=== PATIENT | male | born 1970 | race Caucasian/White ===

== ENCOUNTER 2018-10-18 13:06 | Inpatient (IN) | payer OTHER ==
[~2018-10-18] VITALS: Ht 170.2 cm; Wt 91.3 kg
[2018-10-18] VITALS (13 sets, daily range): BP systolic 82–119; BP diastolic 42–94
[2018-10-18 13:25] LABS: ABSOLUTE EOSINOPHILS 0.1 thou/uL (0.0-0.7); ABSOLUTE LYMPHOCYTES 3.4 thou/uL (0.8-5.3); ABSOLUTE MONOCYTES 0.7 thou/uL (0.0-1.2); BASOPHILS 0.3 %; EOSINOPHILS 0.9 %; HEMATOCRIT 44.4 % (42.0-52.0); LYMPHOCYTES 23.5 %; MCH 31.2 pg (26.0-34.0); MCHC 33.9 g/dL (28.0-37.0); MCV 92.3 fL (80.0-100.0); MPV 9.5 fl. (7.2-11.1); NUCLEATED RBCS 0 /100WBC; PLATELET COUNT* 198 thou/uL (150-400); POLYS 70.3 %; RBC 4.81 mil/uL (4.50-6.00); RDW-CV 13.3 % (10.5-14.5); WBC 14.3 thou/uL (4.0-11.0)
[2018-10-18 13:45] LABS: ANION GAP 8 mmol/L (7-16); APTT 24.2 Seconds (25.0-31.3); BUN 16 mg/dL (7-18); CALCIUM 8.6 mg/dL (8.5-10.1); CHLORIDE 102 mmol/L (98-107); CO2 27 mmol/L (21-32); CREATININE 1.2 mg/dL (0.6-1.3); GLUCOSE 231 mg/dL (70-99); INR 1.1; PROTIME 11.3 Seconds (9.20-11.50); SODIUM 137 mmol/L (136-145); TROPONIN-I LEVEL <0.06 ng/mL (<0.06)
[2018-10-18 13:49] LABS: ALBUMIN 3.5 g/dL (3.4-5.0); ALKALINE PHOSPHATASE 91 U/L (46-116); CK-MB MASS 1.4 ng/mL (<0.5-3.6); LIPASE 118 U/L (73-393); MAGNESIUM 1.9 mg/dL (1.8-2.4); NT-PRO BRAIN NAT PEPTIDE 10 pg/mL (<300); SGOT 18 U/L (15-37); SGPT 25 U/L (30-65); TOTAL BILIRUBIN 0.4 mg/dL (<0.1-1.0); TOTAL PROTEIN 7.1 g/dL (6.4-8.2)
--- NOTE | 2018-10-18 15:40 | CARD ---
[address] [address] CARDIAC CATH REPORT Name: JASMIN GARCIA Room: [facility] IN M.R.#: [id number] Admission: 10/18/18 Attend Phys: Earle Sánchez MD, Discharge: Date of : 68 Report #: [id number] THIS REPORT FOR: //name// APPROVED REPORT Study performed: 10/18/2018 13:23:07 Patient Details Patient Status: In-Patient Room #: The patient is a 48 year-old male Event Personnel Dr Reyes, Dr Sánchez Procedures Performed Left heart catheterization left ventriculography selective coronary artery and acute percutaneous coronary intervention to the right coronary artery in the context of an acute ST segment elevation inferior wall myocardial infarction Indication STEMI Risk Factors Hypercholesterolemia Admission/Lab Medications/Medications given during procedure Aspirin, Platelet Aff. Inhib., Angiomax bolus and infusion Procedure Narrative The patient was brought emergently to the Cardiac Catheterization Laboratory and was prepped and draped in a sterile manner. The right femoral was infiltrated with 2% Lidocaine subcutaneous anesthesia. A 6 Peruvian sheath was inserted into the right femoral artery. Coronary angiography was performed using coronary diagnostic catheters. The right coronary system was accessed and visualized with a Diagnostic catheter. The left coronary system was accessed and visualized with a Diagnostic catheter. The left ventricle was accessed and visualized with a Diagnostic catheter. Left ventricular/Aortic Valve gradient assessed via catheter pullback. Left ventriculogram was performed in [place] LE[place]N projection. Pre-demployment femoral angiogram was performed . Closure device was deployed with a 6 Fr Angioseal. There was no hematoma. Diagnostic Cath [address] [address] CARDIAC CATH REPORT Name: JASMIN GARCIA Room: [address] IN .R.#: [id number] Admission: 10/18/18 Attend Phys: Earle Sánchez MD, Discharge: Date of : 68 Report #: [id number] Left Main 0% narrowing LAD 100% chronic total occlusion of the proximal LAD with left to left collaterals filling the distal LAD system Circumflex 50% narrowing of the proximal portion of the third marginal branch Right Coronary 100% proximal occlusion with prominent intraluminal thrombus. There was 75% mid right coronary artery narrowing at the acute margin defined after recanalization of the proximal right coronary artery Left Ventriculography The left ventricle is normal in size with contractility. The left ventricular ejection fraction is estimated to be 65%. Left ventricular wall motion abnormalities are present. There is no mitral insufficiency. Mild inferobasilar hypokinesis is noted Hemodynamics The aortic pressure is 110/70 mmHg with a mean of mmHg. The left ventricular end diastolic pressure is 20 mmHg. There was no gradient across the aortic valve upon pullback. PCI Technique Lesion Anticoagulation was achieved with Angiomax. Percutaneous coronary intervention was performed on the proximal right coronary artery. The lesion stenosis prior to intervention was 100% with JACE 0 flow. A JR4 6 Peruvian Guide Catheter was used to engage the right ostium. A 014 BMW Interventional Guidewire was used to cross the lesion. BALLOON DILATION A Balloon catheter 2.5 x 12 mm trek was inserted and inflated up to 15atm for 15seconds. STENT DEPLOYMENT A drug-eluting stent 3.25 x 22 mm xience jack was inserted and inflated up to 17atm for 10seconds. POST STENT DEPLOYMENT BALLOON DILATION A Balloon catheter 3.5 x 15 mm NC trek was inserted and inflated up to 18-20atm for 15seconds. Final angiography reveals 10 % stenosis with JACE 3 flow. PCI Technique Lesion 2 Percutaneous Coronary Intervention was [place] [address] CARDIAC CATH REPORT Name: JASMIN GARCIA Room: [address]#: [id number] Admission: 10/18/18 Attend Phys: Earle Sánchez MD, Discharge: Date of : 68 Report #: [id number] coronary artery. The lesion stenosis prior to intervention was 75% with JACE 0 flow. Balloon Dilation A Balloon catheter 2.5 x 12 mm trek was inserted and inflated up to 14atm for 15seconds. Stent Deployment A drug-eluting stent 2.0 x 15 mm xience jack was inserted and inflated up to 18atm for 15seconds. Final angiography reveals 0 % stenosis with JACE 3 flow. Conclusion #[address] segment elevation inferior wall myocardial infarction #2 Coronary artery disease characterized by the following: A 100% proximal right coronary occlusion with prominent intraluminal thrombus with 75% mid right coronary narrowing at the acute margin B 100% chronic total occlusion of the proximal LAD with left to left collaterals filling the distal LAD C prominent though nondominant circumflex with 50% proximal portion of the third marginal branch #2 normal global left ventricular systolic function, estimate ejection fraction being 65% with mild inferobasilar hypokinesis 3 moderate elevation of left ventricular end-diastolic pressure at rest #4 successful percutaneous coronary intervention with deployment of a drug-eluting stent at the site of 100% proximal right coronary occlusion and a second drug-eluting stent at site of 75% mid right coronary occlusion with 10 and 0% residual narrowings and JACE-3 flow to the distal vessel and no residual thrombus Recommendations Cardiac Risk Reduction Program Aggressive Medical Therapy Medications Administered Aspirin (any) [place] [address] CARDIAC CATH REPORT Name: RADHAJASMIN Didi Room: [address]#: [id number] Admission: 10/18/18 Attend Phys: Earle Sánchez MD, Discharge: Date of : 68 Report #: [id number] Ticagrelor Diagnostic Cath Approved by: Gabriel Reyes MD Date/Time: 10/18/2018 15:37:27 <ELECTRONICALLY SIGNED> By: Earle Sánchez MD, [facility] 10/18/18 1539 1539 1539Johimanshu Sánchez MD, [facility] /INF
[2018-10-18 20:06] LABS: HEMATOCRIT 41.6 % (42.0-52.0); HEMOGLOBIN 14.3 gm/dL (14.0-18.0); MCH 31.2 pg (26.0-34.0); MCHC 34.3 g/dL (28.0-37.0); MPV 9.6 fl. (7.2-11.1); RBC 4.58 mil/uL (4.50-6.00); RDW-CV 13.6 % (10.5-14.5); WBC 14.6 thou/uL (4.0-11.0)
[2018-10-18 20:17] LABS: INR 1.3; PROTIME 13.4 Seconds (9.20-11.50)
[2018-10-18 20:33] LABS: APTT 46.2 Seconds (25.0-31.3)
[2018-10-19] VITALS (15 sets, daily range): BP systolic 92–151; BP diastolic 59–80
[2018-10-19 04:18] LABS: HEMATOCRIT 37.6 % (42.0-52.0); HEMOGLOBIN 12.8 gm/dL (14.0-18.0); MCH 31.4 pg (26.0-34.0); MCV 92.3 fL (80.0-100.0); MPV 9.3 fl. (7.2-11.1); RBC 4.07 mil/uL (4.50-6.00); RDW-CV 13.5 % (10.5-14.5); WBC 13.7 thou/uL (4.0-11.0)
[2018-10-19 04:33] LABS: CHOLESTEROL 163 mg/dL (<200); HDL CHOLESTEROL 31 mg/dL (>40); LDL CHOLESTEROL 113 mg/dL (<100); TC:HDL 5.3 Ratio (Not establshd); TRIGLYCERIDE 99 mg/dL (<150); VLDL 20 mg/dL (<40)
[2018-10-19 05:47] LABS: SERUM ASSESSMENT CLEAR
[2018-10-19 06:45] LABS: ALBUMIN 2.9 g/dL (3.4-5.0); CALCIUM 7.8 mg/dL (8.5-10.1); CREATININE 0.9 mg/dL (0.6-1.3); POTASSIUM 4.3 mmol/L (3.5-5.1); TOTAL BILIRUBIN 0.5 mg/dL (<0.1-1.0); TOTAL PROTEIN 5.5 g/dL (6.4-8.2)
[2018-10-19 06:46] LABS: TROPONIN-I LEVEL 110.37 ng/mL (<0.06)
--- NOTE | 2018-10-19 09:34 | EKG ---
[place] [address] ELECTROCARDIOGRAM REPORT Name: JASMIN GARCIA Room: [address] ADM IN M.R.#: [id number] Admission: 10/18/18 Attend Phys: Earle Sánchez MD, Discharge: Date of : 68 Report #: [id number] THIS REPORT FOR: //name// [facility] ED Test Date: 2018-10-18 Test Time: 13:06:23 Pat Name: JASMIN GARCIA Department: Room: [facility] Gender: M Post Graduate Intern: Destinee PEACE : 1970 Requested By: Nick Wilkes Order Number: [id number] MD: Manuel Delaney Measurements Intervals [place] Rate: 53 P: 0 [place]: 171 QRS: 75 QRSD: 108 T: 94 QT: 419 QTc: 394 Interpretive Statements Sinus rhythm Atrial premature complex Inferoposterior infarct, acute (RCA) Probable RV involvement, suggest recording right precordial leads No previous ECG available for comparison Electronically Signed On 10-19-2018 9:33:58 TRANSPORTATION ENGINEERING TECHNICIAN by Manuel Delaney [email or web address] <ELECTRONICALLY SIGNED> By: Manuel Delaney MD, FAC 10/19/18 0933 1306 1306 Manuel Delaney MD, [facility] /EPI
--- NOTE | 2018-10-19 15:59 | EKG ---
[place] [address] ELECTROCARDIOGRAM REPORT Name: JASMIN GARCIA Room: [address] ADM IN M.R.#: [id number] Admission: 10/18/18 Attend Phys: Earle Sánchez MD, Discharge: Date of : 68 Report #: [id number] THIS REPORT FOR: //name// [facility] Test Date: 2018-10-18 Test Time: 19:26:23 Pat Name: JASMIN GARCIA Department: Room: [facility] Gender: Paper Bundler: Pernell Cates : 1970 Requested By: Earle Sánchez Order Number: [id number] MD: Manuel Delaney Measurements Intervals [place] Rate: 65 P: ND: QRS: -13 QRSD: 91 T: 7 QT: 369 QTc: 384 Interpretive Statements Junctional rhythm Inferior infarct, old Compared to ECG 10/18/2018 13:06:23 Junctional rhythm now present Myocardial injury no longer noted Electronically Signed On 10-19-2018 15:59:29 VISUAL STYLIST by Manuel Delaney [email or web address] <ELECTRONICALLY SIGNED> By: Manuel Delaney MD, [facility] 10/19/18 2349 1926 25 Manuel Delaney MD, [facility] /EPI
--- NOTE | 2018-10-19 16:06 | EKG ---
[place] [address] ELECTROCARDIOGRAM REPORT Name: JASMIN GARCIA Room: [address] ADM IN M.R.#: [id number] Admission: 10/18/18 Attend Phys: Earle Sánchez MD, Discharge: Date of : 68 Report #: [id number] THIS REPORT FOR: //name// [facility] Test Date: 2018-10-19 Test Time: 15:29:48 Pat Name: JASMIN GARCIA Department: Room: [address] Gender: M Economics Faculty Member: : 1970 Requested By: Rosio Crump Order Number: [id number] Reading MD: Manuel Delaney Measurements Intervals [place] Rate: 64 P: 43 [place]: 157 QRS: -13 QRSD: 87 T: -24 QT: 376 QTc: 388 Interpretive Statements Sinus rhythm consider Inferior infarct, age indeterminate Probable anteroseptal infarct, old Baseline wander in lead(s) II,V5,V6 Compared to ECG 10/18/2018 13:06:23 Myocardial infarct finding still present Electronically Signed On 10-19-2018 16:06:21 HOT MILL SHEARER by Manuel Delaney [email or web address] <ELECTRONICALLY SIGNED> By: Manuel Delaney MD, [facility] 10/19/18 1606 1529 1529 Manuel Delaney MD, [facility] /EPI
[2018-10-19 23:07] LABS: GLYCOHEMOGLOBIN (HGB A1C) 5.7 % (4.8-5.6)
[2018-10-20] VITALS: BP 95/52
[2018-10-20 04:00] VITALS: BP 100/55
[2018-10-20 05:51] LABS: HEMATOCRIT 39.4 % (42.0-52.0); HEMOGLOBIN 13.1 gm/dL (14.0-18.0); MCH 30.7 pg (26.0-34.0); MCHC 33.2 g/dL (28.0-37.0); MCV 92.6 fL (80.0-100.0); MPV 9.9 fl. (7.2-11.1); RBC 4.26 mil/uL (4.50-6.00); RDW-CV 13.4 % (10.5-14.5); WBC 12.9 thou/uL (4.0-11.0)
[2018-10-20 06:09] LABS: ALBUMIN 2.9 g/dL (3.4-5.0); CALCIUM 8.3 mg/dL (8.5-10.1); CREATININE 0.9 mg/dL (0.6-1.3); MAGNESIUM 2.1 mg/dL (1.8-2.4); POTASSIUM 4.2 mmol/L (3.5-5.1); TOTAL BILIRUBIN 0.7 mg/dL (<0.1-1.0); TOTAL PROTEIN 6.2 g/dL (6.4-8.2)
[2018-10-20 06:17] LABS: TROPONIN-I LEVEL 45.72 ng/mL (<0.06)
[2018-10-20 07:59] VITALS: BP 94/55
[2018-10-20] MEDS ORDERED: BRILINTA90 MG PO (10:14)
[2018-10-20] MEDS ORDERED: ASPIR 8181 MG PO (10:14)
[2018-10-20] MEDS ORDERED: LOPRESSOR25 PO (10:17)
[2018-10-20 10:18] VITALS: BP 93/62
[2018-10-20] MEDS ORDERED: ATORVASTATIN CA40 MG PO (14:17)
[2018-10-20] MEDS ORDERED: NITROGLYCERIN0.4 MG SUBLING (14:17)
[2018-10-20] MEDS ORDERED: PROTONIX40 M1 PO (14:18)
--- NOTE | 2018-10-22 13:14 | H ---
[address] [address] HISTORY AND PHYSICAL Name: JASMIN GARCIA Room: [address]R.#: [id number] Admission: 10/18/18 Attend Phys: Earle Sánchez MD, Discharge: 10/20/18 Date of : 68 Report #: [id number] THIS REPORT FOR: //name// CC: [facility] physician/PCP Earle Sánchez INDICATION: Inferior wall myocardial infarction, acute. HISTORY OF PRESENT ILLNESS: The patient is a 48-year-old gentleman who reports a history of hypertriglyceridemia. He denies any prior cardiac history. Approximately one hour ago, he had upper epigastric, mid sternal chest discomfort without radiation. He had diaphoresis and shortness of breath. No nausea. The patient presented to the Emergency Room by EMS and was noted to have significant ST elevations in the inferior leads on his initial EKG. PAST MEDICAL HISTORY: Hypertriglyceridemia. SOCIAL HISTORY: The patient smokes cigarettes daily. FAMILY HISTORY: Noncontributory. REVIEW OF SYSTEMS: CONSTITUTIONAL: The patient denies convulsions, seizures or focal paralysis. In general, there is no unexplained weight loss or fevers. RESPIRATORY: No cough, no shortness of breath. CARDIOVASCULAR: As outlined above. He denies any history of murmur. ENDOCRINE: No history of diabetes or thyroid disease. GASTROINTESTINAL: No vomiting, nausea, hematemesis or melena. GENITOURINARY: No dysuria or hematuria. HEMATOLOGIC AND LYMPHATIC: No history of anemia, bleeding disorder, cancer or blood clots. ALLERGY AND IMMUNOLOGIC: No significant medical or seasonal allergies. PSYCHIATRIC: No depression or anxiety. MUSCULOSKELETAL: No significant arthritis or connective tissue disease. SKIN: No recent rashes, hives or chronic skin conditions. EYES: No acute loss in vision. EARS, NOSE, MOUTH, THROAT: He denies decreased hearing or epistaxis. PHYSICAL EXAMINATION: VITAL SIGNS: Blood pressure 114/72, pulse currently 64. GENERAL: This is a thin, pleasant gentleman in no distress. Mood and affect slightly blunted. HEENT: Extraocular muscles intact. Mucous membranes are moist. NECK: Shows no jugular venous distention. There are no carotid bruits. CHEST: Reveals clear lung day without wheeze, rales. CARDIAC: Reveals a regular rhythm, normal S1 and S2. I do not [place] [address] HISTORY AND PHYSICAL Name: JASMIN GARCIA Room: [address]#: [id number] Admission: 10/18/18 Attend Phys: Earle Sánchez MD, Discharge: 10/20/18 Date of : 68 Report #: [id number] ABDOMEN: Reveals normal bowel sounds. The abdomen is soft, nontender. EXTREMITIES: Shows no edema. Peripheral pulses 2+ and easily palpable. SKIN: Warm and dry. LABORATORY DATA: A 12-lead EKG shows sinus bradycardia with ST elevation in inferior leads. Labs pending. Chest x-ray pending. IMPRESSION AND RECOMMENDATIONS: 1. Acute inferior wall myocardial infarction. We will proceed with emergent cardiac catheterization and probable coronary intervention. The patient given aspirin and heparin in the Emergency Room. 2. Hypertriglyceridemia. The patient is not currently on medication. We will consider initiation of statin agent post-intervention. 3. Tobacco use. Recommend cessation. <ELECTRONICALLY SIGNED> By: Gabriel Reyes MD, FACC 10/22/18 1314 1339 2238Mictoño Reyes MD, FACC /nt
--- NOTE | 2018-10-22 13:14 | D ---
[address] [address] DISCHARGE SUMMARY Name: JASMIN GARCIA Room: [address] IN M.R.#: [id number] Admission: 10/18/18 Attend Phys: Earle Sánchez MD, Discharge: 10/20/18 Date of : 68 Report #: [id number] THIS REPORT FOR: //name// CC: [facility] physician/PCP Erale Sánchez ADMITTING DIAGNOSIS: Acute on chronic combined heart failure. DISCHARGE DIAGNOSES: 1. Coronary artery disease with acute inferior wall ST elevation myocardial infarction. 2. Ischemic cardiomyopathy. 3. Hyperlipidemia. 4. Tobacco use. PROCEDURES DURING THE HOSPITALIZATION: 1. Left heart catheterization with coronary angiography, and left ventriculography/ 2. Percutaneous coronary intervention with drug-eluting stent placement to the proximal and mid right coronary artery. 3. Telemetry monitoring. HOSPITAL COURSE: The patient was admitted emergently through the Emergency Room with acute ST elevation myocardial infarction involving the right coronary artery. The patient underwent emergent coronary angiography with percutaneous coronary intervention. The patient tolerated the procedure well and without complication. He has a drug-eluting stent now in the proximal and mid right coronary artery. At catheterization, he was noted to have a chronically occluded left anterior descending coronary artery that fills by left to left collaterals. On left ventriculogram, the inferior wall appeared to be hypokinetic consistent with acute infarct. The anterior wall was moving normally. He had no symptoms to suggest volume overload at the time of discharge. HOSPITAL DISCHARGE MEDICATIONS: Aspirin 81 mg daily, Brilinta 90 mg b.i.d., metoprolol 25 mg b.i.d., Nitrostat 0.4 mg sublingual p.r.n., atorvastatin 40 mg at bedtime, Protonix 40 mg daily. DISPOSITION: The patient is to follow up with our nurse practitioner on October 26. Further followup to be arranged after that. <ELECTRONICALLY SIGNED> By: Gabriel Reyes MD, FACC 10/22/18 1314 1410 1513Mictoño Reyes MD, FACC /nt
== END 2018-10-20 16:11 | disposition home or self-care (01) | DRG 247 ==
LOC: M.ERS 13:06 → M.TBA-CV 13:41 → M.ICU 13:41 → M.2W 13:41 → M.ICU 15:38 → M.TBA 10-19 07:33 → M.ICU 10-19 07:35 → M.2W 10-19 12:14
PROVIDERS: Family Medicine; Internal Medicine; Internal Medicine Cardiovascular Disease; ADMIT Internal Medicine
PROC: B41F1ZZ Fluoroscopy of Right Lower Extremity Arteries using Low Osmolar Contrast (ICD-10-PCS; principal; 2018-10-18)
PROC: 027035Z Dilation of Coronary Artery, One Artery with Two Drug-eluting Intraluminal Devices, Percutaneous Approach (ICD-10-PCS; principal; 2018-10-18)
PROC: B2111ZZ Fluoroscopy of Multiple Coronary Arteries using Low Osmolar Contrast (ICD-10-PCS; principal; 2018-10-18)
PROC: 4A023N7 Measurement of Cardiac Sampling and Pressure, Left Heart, Percutaneous Approach (ICD-10-PCS; principal; 2018-10-18)
PROC: B2151ZZ Fluoroscopy of Left Heart using Low Osmolar Contrast (ICD-10-PCS; principal; 2018-10-18)
DX: I21.09 ST elevation (STEMI) myocardial infarction involving other coronary artery of anterior wall (principal); I25.10 Atherosclerotic heart disease of native coronary artery without angina pectoris; Z71.6 Tobacco abuse counseling; I10 Essential (primary) hypertension; M19.90 Unspecified osteoarthritis, unspecified site; R73.9 Hyperglycemia, unspecified; I25.5 Ischemic cardiomyopathy; F17.210 Nicotine dependence, cigarettes, uncomplicated; E78.2 Mixed hyperlipidemia

== ENCOUNTER 2019-01-13 09:59 | Inpatient (IN) | payer OTHER ==
[~2019-01-13] VITALS: Ht 165.1 cm; Wt 84.8 kg
[~2019-01-13 09:59] MED LIST: ASPIR 8181 MG PO; ATORVASTATIN CA40 MG PO; BRILINTA90 MG PO; EFFIENT10 MG PO; HYDROCODON-ACE1 EAC7 PO; LOPRESSOR25 PO; NITROGLYCERIN0.4 MG SUBLING; PLAVIX 75 MG TA75 M1 PO; PROTONIX40 M1 PO
[2019-01-13 10:26] LABS: ABSOLUTE EOSINOPHILS 0.2 thou/uL (0.0-0.7); ABSOLUTE LYMPHOCYTES 1.9 thou/uL (0.8-5.3); ABSOLUTE MONOCYTES 0.4 thou/uL (0.0-1.2); ABSOLUTE NEUTROPHILS 3.3 thou/uL (1.6-8.1); BASOPHILS 0.3 %; HEMATOCRIT 41.1 % (42.0-52.0); HEMOGLOBIN 14.1 gm/dL (14.0-18.0); LYMPHOCYTES 33.5 %; MCH 31.1 pg (26.0-34.0); MCHC 34.3 g/dL (28.0-37.0); MCV 90.5 fL (80.0-100.0); MONOCYTES 6.3 %; MPV 9.7 fl. (7.2-11.1); NUCLEATED RBCS 0 /100WBC; PLATELET COUNT* 148 thou/uL (150-400); POLYS 56.9 %; RBC 4.54 mil/uL (4.50-6.00); RDW-CV 13.2 % (10.5-14.5); WBC 5.8 thou/uL (4.0-11.0)
[2019-01-13 10:35] LABS: ANION GAP 6 mmol/L (7-16); BUN 16 mg/dL (7-18); CALCIUM 8.7 mg/dL (8.5-10.1); CHLORIDE 106 mmol/L (98-107); CO2 29 mmol/L (21-32); CREATININE 0.9 mg/dL (0.6-1.3); GLUCOSE 109 mg/dL (70-99); POTASSIUM 4.1 mmol/L (3.5-5.1); SODIUM 141 mmol/L (136-145)
[2019-01-13 10:39] LABS: APTT 27.4 Seconds (25.0-31.3); INR 1.1; PROTIME 11.2 Seconds (9.20-11.50)
[2019-01-13 10:47] LABS: ALBUMIN 3.6 g/dL (3.4-5.0); ALKALINE PHOSPHATASE 95 U/L (46-116); LIPASE 98 U/L (73-393); NT-PRO BRAIN NAT PEPTIDE 236 pg/mL (<300); SGOT 15 U/L (15-37); SGPT 26 U/L (30-65); TOTAL BILIRUBIN 0.4 mg/dL (<0.1-1.0); TOTAL PROTEIN 7.1 g/dL (6.4-8.2)
[2019-01-13 11:10] LABS: CK-MB MASS 1.7 ng/mL (<0.5-3.6); TROPONIN-I LEVEL <0.06 ng/mL (<0.06)
[2019-01-13 12:09] VITALS: BP 99/67
[2019-01-13] MEDS ORDERED: EFFIENT10 MG PO (12:54)
--- NOTE | 2019-01-13 16:09 | 2DMMODE ---
[place] [address] 2 D/M-MODE ECHOCARDIOGRAM Name: JASMIN GARCIA Room: [address] IN [facility]#: [id number] Admission: 01/13/19 Attend Phys: Danial Qureshi MD Discharge: Date of : 68 Date of Service: 01/13/19 1608 Report #: [id number] THIS REPORT FOR: //name// APPROVED REPORT Study performed: 01/13/2019 14:02:55 EXAM: Comprehensive 2D, Doppler, and color-flow Echocardiogram Patient Location: In-Patient Room #: 208 Status: routine BSA: 1.92 HR: 48 bpm BP: 99/67 mmHg Rhythm: NSR Other Information Study Quality: Good Indications Chest Pain 2D Dimensions IVSd: 12.10 (7-11mm) LVOT Diam: 21.49 (18-24mm) LVDd: 50.23 mm PWd: 10.05 (7-11mm) Ascending Ao: 35.13 (22-36mm) LVDs: 35.69 (25-40mm) Aortic Root: 32.37 mm Volumes Left Atrial Volume (Systole) LA ESV Index: 28.90 mL/m2 Aortic Valve AoV Peak Pradip.: 1.44 m/s AO Peak Gr.: 8.32 mmHg LVOT Max P.08 mmHg AO Mean Gr.: 3.68 mmHg LVOT Mean P.12 mmHg LVOT Max V: 1.13 m/s AO V2 VTI: 26.85 cm LVOT Mean V: 0.65 m/s CHEMA (VTI): 3.15 cm2 LVOT V1 VTI: 23.29 cm Mitral Valve E/A Ratio: 1.14 MV Decel. Time: 236.20 ms MV E Max Pradip.: 0.84 m/[place] [address] 2 D/M-MODE ECHOCARDIOGRAM Name: JASMIN GARCIA Room: [address] IN [facility]#: [id number] Admission: 01/13/19 Attend Phys: Danial Qureshi MD Discharge: Date of : 68 Date of Service: 01/13/19 1608 Report #: [id number] MV PHT: 68.50 ms MVA (PHT): 3.21 cm2 TDI E/Lateral E': 7.64 E/Medial E': 7.00 Medial E' Pradip.: 0.12 m/s Lateral E' Pradip.: 0.11 m/s Pulmonary Valve PV Peak Pradip.: 0.85 m/s PV Peak Gr.: 2.89 mmHg Left Ventricle The left ventricle is normal size. There is normal LV segmental wall motion. There is normal left ventricular wall thickness. Left ventricular systolic function is normal. The left ventricular ejection fraction is within the normal range. LVEF is 55%. The left ventricular diastolic function is normal. Right Ventricle The right ventricle is normal size. The right ventricular systolic function is normal. Atria The left atrium size is normal. The right atrium size is normal. Aortic Valve Mild aortic valve sclerosis. No aortic regurgitation is present. There is no aortic valvular stenosis. Mitral Valve The mitral valve is normal in structure. Trace mitral regurgitation. No evidence of mitral valve stenosis. Tricuspid Valve The tricuspid valve is normal in structure. Unable to assess PA pressure. Trace tricuspid regurgitation. Pulmonic Valve The pulmonary valve is normal in structure. Trace pulmonic regurgitation. Great Vessels The aortic root is normal in size. IVC is normal in size and collapses >50% [place] [address] 2 D/M-MODE ECHOCARDIOGRAM Name: JASMIN GARCIA Room: [address] IN [facility]#: [id number] Admission: 01/13/19 Attend Phys: Danial Qureshi MD Discharge: Date of : 68 Date of Service: 01/13/19 1608 Report #: [id number] Pericardium There is no pericardial effusion. <Conclusion> The left ventricle is normal size. There is normal left ventricular wall thickness. Left ventricular systolic function is normal. The left ventricular ejection fraction is within the normal range. LVEF is 55%. The right ventricle is normal size. The left atrium size is normal. Mild aortic valve sclerosis. No aortic regurgitation is present. There is no aortic valvular stenosis. The mitral valve is normal in structure. Trace mitral regurgitation. The tricuspid valve is normal in structure. IVC is normal in size and collapses >50% with inspiration. There is no pericardial effusion. There is normal LV segmental wall motion. <ELECTRONICALLY SIGNED> By: Earle Sánchez MD, [facility] 01/13/19 1608 1608 1608 Earle Sánchez MD, FACC /INF
[2019-01-13 16:11] VITALS: BP 124/80
[2019-01-13 19:00] LABS: AMP/METHAMP Negative (Negative); BARBITURATES Negative (Negative); BENZODIAZEPINES Negative (Negative); COCAINE Negative (Negative); METHADONE Negative (Negative); OPIATES Negative (Negative); PCP Negative (Negative); THC Negative (Negative)
[2019-01-13 19:50] VITALS: BP 109/55
[2019-01-14] VITALS (18 sets, daily range): BP systolic 107–123; BP diastolic 67–82
[2019-01-14 10:18] LABS: CHOLESTEROL 96 mg/dL (<200); HDL CHOLESTEROL 33 mg/dL (>40); LDL CHOLESTEROL 36 mg/dL (<100); SERUM ASSESSMENT Clear; TC:HDL 2.9 Ratio (Not establshd); TRIGLYCERIDE 138 mg/dL (<150); VLDL 28 mg/dL (<40)
--- NOTE | 2019-01-14 17:35 | EKG ---
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 Numerical Control: : 1970 Requested By: Nick Wilkes Order Number: [id number] MD: Gabriel Reyes Measurements Intervals [place] Rate: 59 P: 40 ND: 171 QRS: -8 QRSD: 93 T: -15 QT: 383 QTc: 380 Interpretive Statements Sinus rhythm Ventricular premature complex Inferior infarct, age indeterminate Consider anterior infarct Compared to ECG 10/29/2018 03:57:10 Ventricular premature complex(es) now present Myocardial infarct finding still present Electronically Signed On 01-14-2019 17:35:17 CDT by Gabriel Reyes [email or web address] <ELECTRONICALLY SIGNED> By: Gabriel Reyes MD, FACC 01/14/19 1735 1002 1002 Gabriel Reyes MD, FAC /EPI
--- NOTE | 2019-01-14 17:39 | EKG ---
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: : 1970 Requested By: Danial Qureshi Order Number: [id number] Reading MD: Gabriel Reyes Measurements Intervals [place] Rate: 48 P: 38 [place]: 196 QRS: -5 QRSD: 92 T: -19 QT: 430 QTc: 385 Interpretive Statements Sinus bradycardia Inferior infarct, age indeterminate Anteroseptal infarct, age indeterminate Compared to ECG 10/29/2018 03:57:10 Sinus rhythm no longer present Myocardial infarct finding still present Electronically Signed On 01-14-2019 17:39:39 CDT by Gabriel Reyes [email or web address] <ELECTRONICALLY SIGNED> By: Gabriel Reyes MD, FACC 01/14/19 1739 0811 0811 Gabriel Reyes MD, [facility] /EPI
[2019-01-15 00:05] VITALS: BP 116/70
[2019-01-15 04:00] VITALS: BP 108/73
[2019-01-15 05:15] LABS: CALCIUM 8.3 mg/dL (8.5-10.1); CREATININE 0.8 mg/dL (0.6-1.3); POTASSIUM 3.9 mmol/L (3.5-5.1)
[2019-01-15 07:53] VITALS: BP 122/74
--- NOTE | 2019-01-15 10:56 | CON ---
[address] [address] CONSULTATION Name: JASMIN GARCIA Room: [address] IN ..#: [id number] Admission: 01/13/19 Attend Phys: Danial Qureshi MD Discharge: Date of : 68 Report #: [id number] THIS REPORT FOR: //name// CC: [facility] physician/PCP Danial Qureshi DATE OF SERVICE: 01/13/2019 LOCATION: The patient is in room 208. HISTORY OF PRESENT ILLNESS: The patient is a very pleasant 48-year-old male with complex coronary artery disease. He presented in September with acute inferior infarction interrupted by stenting of the right coronary artery with subsequent stenting of chronic total occlusion of the proximal LAD 2 weeks later. He had done well until several weeks ago when he noted episode of left parasternal discomfort and had a recurrent episode this morning, which lasted for several hours. It is in the similar location to his prior ischemic pain, but feels somewhat different in its quality. The patient does have risk factors for coronary artery disease including prior cigarette smoking until his infarct, hypercholesterolemia and hypertension. MEDICATIONS: Have included aspirin, atorvastatin, metoprolol, prasugrel, sublingual nitroglycerin and pantoprazole. PAST MEDICAL HISTORY: Remarkable for the aforementioned risk factors. FAMILY HISTORY: Negative for premature coronary artery disease. 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 He does not drink. REVIEW OF SYSTEMS: Remarkable for the following positives: RESPIRATORY: He notes occasional cough. CARDIOVASCULAR: He noted the chest discomfort triggering admission. MUSCULOSKELETAL: He notes mild chronic arthritic complaints. Remainder is unremarkable. PHYSICAL EXAMINATION: GENERAL: Demonstrates a nondistressed appearing middle-aged male. VITAL SIGNS: Blood pressure 130/70, pulse rate is 68 and respirations are 18 per minute. NECK: Jugular venous pressure is normal. Carotids are 1-2+. CHEST: Clear. CARDIAC: Reveals normal first and second heart sounds without murmurs or gallops. ABDOMEN: [place] [address] CONSULTATION Name: JASMIN GARCIA Room: [address]#: [id number] Admission: 01/13/19 Attend Phys: Danial Qureshi MD Discharge: Date of : 68 Report #: [id number] EXTREMITIES: Without edema with satisfactory radial, femoral and pedal pulses. PERTINENT LABORATORY DATA: Electrocardiogram reveals sinus rhythm with inferior wall scar and occasional PVCs, no acute ischemic changes are noted. IMPRESSION: 1. Chest pain. 2. Coronary artery disease, status post recent myocardial infarction with acute setting of the right coronary artery with subsequent recanalization of a chronic total occlusion of the left anterior descending. 3. History of tobacco use. 4. Hypercholesterolemia. 5. Hypertension. RECOMMENDATIONS: Given the complex coronary artery disease and recent complex history with acute infarction and multivessel stenting, I would recommend recatheterization on 01/14/2019 to document current coronary anatomy and prospects for subsequent therapeutic modification. This has been discussed with the patient and family. Critical care time is 35 minutes from 1512 to 1547. <ELECTRONICALLY SIGNED> By: Earle Sánchez MD, FACC 01/15/19 1056 1547 0500Earle Sánchez MD, FAC /nt
[2019-01-15 11:24] VITALS: BP 122/74
[2019-01-15 12:24] VITALS: BP 131/88
--- NOTE | 2019-01-16 07:24 | D ---
[address] [address] DISCHARGE SUMMARY Name: JASMIN GARCIA Room: [address] IN M.R.#: [id number] Admission: 01/13/19 Attend Phys: Danial Qureshi MD Discharge: 01/15/19 Date of : 68 Report #: [id number] THIS REPORT FOR: //name// CC: ELDA physician/PCP Danial Qureshi DATE OF SERVICE: 01/15/2019 DISCHARGE DIAGNOSES: 1. Angina. 2. Known coronary artery disease. 3. Stent. 4. Hyperlipidemia. 5. Hypertension. HOSPITAL COURSE: The patient is a 48-year-old gentleman who does have history of coronary artery disease with stent placement, who presented to us concerning for chest pain. He had exertional chest pain. He had labs drawn and troponin has been negative. Cardiology saw the patient in consultation and did cath the patient, which report is pending, but per preliminary report, the cath was unremarkable and the Cardiology is okay with discharging the patient home. He does not have chest pain now. He will then be discharged to home. DISPOSITION: Stable. DISCHARGE PHYSICAL EXAMINATION: VITAL SIGNS: Temperature 36.7, heart rate 52, respiration 17, blood pressure is 131/88, 100% on room air. GENERAL: The patient is alert. He is oriented x 3, not in acute respiratory distress. HEENT: Normocephalic, atraumatic. Nares patent. Clear oropharynx. NECK: Supple. No lymphadenopathy. CARDIOVASCULAR: Normal rate, regular rhythm. No murmurs noted. RESPIRATORY: Clear to auscultation bilaterally. There is no wheeze, no crackles. GASTROINTESTINAL: Abdomen is soft, nontender, nondistended. Good bowel sounds. No organomegaly. GENITOURINARY: Deferred. MUSCULOSKELETAL: Good strength. NEUROLOGIC: Grossly normal. PSYCHIATRIC: The patient is calm and good. The patient again will be discharged to home. Follow up with Dr. Sánchez on 04/06/2019 at 11:30, with PCP in 3-5 days. Notify family physician, if there is fever, excessive bleeding, pain uncontrolled by medication, shortness of breath, chest pain, and incision [place] [address] DISCHARGE SUMMARY Name: RADHAJASMIN Didi Room: [address]#: [id number] Admission: 01/13/19 Attend Phys: Danial Qureshi MD Discharge: 01/15/19 Date of : 68 Report #: [id number] DIET: Cardiac diet. ACTIVITY: No lifting over 10 pounds. DISCHARGE MEDICATIONS: Aspirin 81 mg daily, atorvastatin 40 mg at bedtime, pantoprazole 40 mg daily, prasugrel 10 mg daily, and nitroglycerin 0.4 sublingual q. 5 minutes for chest pain. I spent 32 minutes taking care of this patient today. <ELECTRONICALLY SIGNED> By: Kalyn Patton MD 01/16/19 0724 1235 0004Kalyn Patton MD /nt
== END 2019-01-15 13:30 | disposition home or self-care (01) | DRG 303 ==
LOC: M.ERS 09:59 → M.2W 11:32 → M.TBA-ER 11:32 → M.2W 12:22
PROVIDERS: Family Medicine; Internal Medicine; ADMIT Family Medicine
DX: I25.119 Atherosclerotic heart disease of native coronary artery with unspecified angina pectoris (principal); I10 Essential (primary) hypertension; I25.10 Atherosclerotic heart disease of native coronary artery without angina pectoris; E78.00 Pure hypercholesterolemia, unspecified; E78.5 Hyperlipidemia, unspecified; Z95.5 Presence of coronary angioplasty implant and graft; Z87.891 Personal history of nicotine dependence; I25.2 Old myocardial infarction; Z79.899 Other long term (current) drug therapy

== ENCOUNTER 2019-12-15 10:39 | Emergency (ER) | payer OTHER ==
[~2019-12-15] VITALS: Ht 157.5 cm; Wt 90.7 kg
[2019-12-15 11:12] LABS: ABSOLUTE BASOPHILS 0.1 thou/uL (0.0-0.2); ABSOLUTE EOSINOPHILS 0.2 thou/uL (0.0-0.7); ABSOLUTE LYMPHOCYTES 2.5 thou/uL (0.8-5.3); ABSOLUTE MONOCYTES 0.5 thou/uL (0.0-1.2); ABSOLUTE NEUTROPHILS 4.6 thou/uL (1.6-8.1); BASOPHILS 0.8 %; EOSINOPHILS 2.7 %; HEMATOCRIT 41.5 % (42.0-52.0); HEMOGLOBIN 14.9 gm/dL (14.0-18.0); LYMPHOCYTES 31.3 %; MCH 32.3 pg (26.0-34.0); MCHC 35.9 g/dL (28.0-37.0); MCV 90.1 fL (80.0-100.0); MONOCYTES 6.7 %; MPV 9.8 fl. (7.2-11.1); NUCLEATED RBCS 0 /100WBC; PLATELET COUNT* 155 thou/uL (150-400); POLYS 58.5 %; RBC 4.61 mil/uL (4.50-6.00); RDW-CV 13.8 % (10.5-14.5); WBC 7.9 thou/uL (4.0-11.0)
[2019-12-15 11:22] LABS: CALCIUM 8.7 mg/dL (8.5-10.1); CREATININE 0.9 mg/dL (0.6-1.3); POTASSIUM 4.2 mmol/L (3.5-5.1)
[2019-12-15 11:25] LABS: APTT 26.4 Seconds (25.0-31.3); PROTIME 10.4 Seconds (9.20-11.50)
[2019-12-15 11:32] LABS: ALBUMIN 3.6 g/dL (3.4-5.0); MAGNESIUM 2.1 mg/dL (1.8-2.4); TOTAL BILIRUBIN 0.5 mg/dL (<0.1-1.0); TOTAL PROTEIN 7.4 g/dL (6.4-8.2)
[2019-12-15] MEDS ORDERED: ZANAFLEX4 MG PO (13:53)
[2019-12-15 13:56] VITALS: BP 138/91
--- NOTE | 2019-12-15 14:44 | EKG ---
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1970 Requested By: Jonna Hoffmann Order Number: [id number] MD: Manuel Delaney Measurements Intervals [place] Rate: 74 P: 49 [place]: 174 QRS: 4 QRSD: 99 T: 9 QT: 366 QTc: 406 Interpretive Statements Sinus rhythm Inferior infarct, old Probable septal infarct, old Compared to ECG 01/14/2019 08:11:16 Sinus bradycardia no longer present Myocardial infarct finding still present Electronically Signed On 12-15-2019 14:42:56 CDT by Manuel Delaney [email or web address] <ELECTRONICALLY SIGNED> By: Manuel Delaney MD, FAC 12/15/19 1442 1106 1106 Manuel Delaney MD, [facility] /EPI
== END 2019-12-15 13:57 | disposition home or self-care (01) ==
LOC: M.ERS 10:39
PROVIDERS: Nurse Practitioner Family
DX: S80.811A Abrasion, right lower leg, initial encounter (principal); R06.00 Dyspnea, unspecified; I10 Essential (primary) hypertension; E78.00 Pure hypercholesterolemia, unspecified; F17.210 Nicotine dependence, cigarettes, uncomplicated; Z95.5 Presence of coronary angioplasty implant and graft; X58.XXXA Exposure to other specified factors, initial encounter; Y93.89 Activity, other specified; Y92.89 Other specified places as the place of occurrence of the external cause; Y99.8 Other external cause status

== ENCOUNTER 2021-02-01 08:56 | Emergency (ER) | payer OTHER ==
[~2021-02-01] VITALS: Ht 170.2 cm; Wt 95.3 kg
[~2021-02-01 08:56] MED LIST changes: +ZANAFLEX4 MG PO
[2021-02-01] MEDS ORDERED: ASA81BEC PO (09:14)
[2021-02-01] MEDS ORDERED: VENLAFAXINE HCL75 M2 PO (09:14)
[2021-02-01 09:25] LABS: ABSOLUTE BASOPHILS 0.1 thou/uL (0.0-0.2); ABSOLUTE EOSINOPHILS 0.7 thou/uL (0.0-0.7); ABSOLUTE LYMPHOCYTES 2.3 thou/uL (0.8-5.3); ABSOLUTE MONOCYTES 0.4 thou/uL (0.0-1.2); ABSOLUTE NEUTROPHILS 3.7 thou/uL (1.6-8.1); BASOPHILS 0.9 %; EOSINOPHILS 9.5 %; HEMATOCRIT 43.3 % (42.0-52.0); HEMOGLOBIN 15.1 gm/dL (14.0-18.0); LYMPHOCYTES 32.5 %; MCH 31.9 pg (26.0-34.0); MCHC 34.8 g/dL (28.0-37.0); MCV 91.6 fL (80.0-100.0); MONOCYTES 5.7 %; MPV 9.5 fl. (7.2-11.1); NUCLEATED RBCS 0 /100WBC; PLATELET COUNT* 159 thou/uL (150-400); POLYS 51.4 %; RBC 4.73 mil/uL (4.50-6.00); RDW-CV 13.5 % (10.5-14.5); WBC 7.2 thou/uL (4.0-11.0)
[2021-02-01 09:35] LABS: CALCIUM 8.7 mg/dL (8.5-10.1); CREATININE 0.8 mg/dL (0.6-1.3); POTASSIUM 4.4 mmol/L (3.5-5.1)
[2021-02-01 09:39] LABS: ALBUMIN 3.6 g/dL (3.4-5.0); TOTAL BILIRUBIN 0.6 mg/dL (<0.1-1.0); TOTAL PROTEIN 7.3 g/dL (6.4-8.2)
[2021-02-01 10:10] VITALS: BP 136/88
--- NOTE | 2021-02-01 16:33 | EKG ---
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[place] : 1970 Requested By: Aníbal Dale Order Number: [id number] MD: Earle Sánchez Measurements Intervals [place] Rate: 63 P: 42 MS: 187 QRS: 0 QRSD: 97 T: -10 QT: 371 QTc: 380 Interpretive Statements Sinus rhythm Inferior infarct, age indeterminate Consider anterior infarct Compared to ECG 12/15/2019 11:06:54 No significant changes Electronically Signed On 02-01-2021 16:33:18 CDT by Earle Sánchez [email or web address] <ELECTRONICALLY SIGNED> By: Earle Sánchez MD, [facility] 02/01/21 1633 09 0902 Earle Sánchez MD, [facility] /EPI
== END 2021-02-01 10:11 | disposition home or self-care (01) ==
LOC: M.ERS 08:56
PROVIDERS: Emergency Medicine Emergency Medical Services
DX: R42 Dizziness and giddiness (principal); R20.0 Anesthesia of skin; I10 Essential (primary) hypertension; F17.210 Nicotine dependence, cigarettes, uncomplicated; Z79.82 Long term (current) use of aspirin